=== PATIENT | male | born 1960 | race Caucasian/White ===

== ENCOUNTER 2016-05-02 10:52 | Emergency (ER) | payer OTHER ==
[~2016-05-02] VITALS: Ht 180.3 cm; Wt 129.3 kg
--- NOTE | 2016-05-02 10:57 | NUR ---
Patient ambulated to bed 06.
[2016-05-02 11:03] VITALS: BP 147/102
--- NOTE | 2016-05-02 11:07 | NUR ---
Dr. Kennedy evaluating patient at bedside.
--- NOTE | 2016-05-02 11:08 | NUR ---
PATIENT PRESENTS TO ED WITH C/O LOW BACK PAIN RADIATING DOWN RIGHT LEG AND LEFT KNEE PAIN X 3-4 DAYS. DENIES N/V/D; SKIN IS PINK/WARM/DRY; AAOX4 WITH EVEN AND STEADY GAIT; LUNGS CLEAR BL; HR EVEN AND REGULAR; PT DENIES ANY FEVER, CP, SOB, OR COUGH AT THIS TIME; PATIENT STATES PAIN OF 9/10 AT THIS TIME; VSS; PATIENT POSITIONED FOR COMFORT; HOB ELEVATED; BEDRAILS UP X2; BED DOWN. ER MD MADE AWARE OF PT STATUS.
--- NOTE | 2016-05-02 11:10 | NUR ---
DR. SCHMID AWARE OF RESULT OF URINE DIPSTICK
[2016-05-02] MEDS ORDERED: HYDROcodone/APAP 10/325 MG 1 TAB TAB PO ONE (11:20)
[2016-05-02] MEDS ORDERED: KETOROLAC 30 MG/ML VIAL IM ONE (11:20)
[2016-05-02] MEDS ORDERED: METHOCARBAMOL 500 MG TAB PO SCH (11:20)
--- NOTE | 2016-05-02 11:30 | NUR ---
Patient to XRAY via wheelchair per tech.
--- NOTE | 2016-05-02 11:53 | NUR ---
Patient back from XRAY via wheelchair per tech.
[2016-05-02 12:12] VITALS: BP 144/92
--- NOTE | 2016-05-02 12:12 | NUR ---
Patient discharged with v/s stable. Written and verbal after care instructions given and explained. Patient alert, oriented and verbalized understanding of instructions. Ambulatory with steady gait. All questions addressed prior to discharge. ID band removed. Patient advised to follow up with PMD. Rx of NORCO 5/325 MG, ROBAXIN 500MG, MOTRIN 600MG given. Patient educated on indication of medication including possible reaction and side effects. Opportunity to ask questions provided and answered.
== END 2016-05-02 12:12 | disposition home or self-care (01) ==
LOC: MED 10:52
DX: M54.16 Radiculopathy, lumbar region (principal); M25.562 Pain in left knee
CPT/HCPCS: 72110; 73562; 81002; 96372; 99284; J1885

== ENCOUNTER 2019-11-21 09:28 | Emergency (ER) | payer OTHER ==
[~2019-11-21] VITALS: Ht 180.3 cm; Wt 129.3 kg
[2019-11-21 09:30] VITALS: BP 131/78
--- NOTE | 2019-11-21 09:36 | NUR ---
Patient ambulated to bed 6. RN evaluating patient at bedside.
--- NOTE | 2019-11-21 09:42 | NUR ---
59 Y/O M C/C RLE CELLUTITIS X 1 DAY. PER PT HX OF PREVIOUS EPISODES DUE TO HEAVILY DRINKING ALCOHOL AND MOSQUITO BITES. PER PT HAS QUIT DRINKING DUE TO RECURRENT EVENTS OF CELLULITIS. PT PRESENTS WITH WARM TO TOUCH, PITTING EDEMA +1, SWOLLEN, ASYMMETRICAL SIZE RLE. PT NKA. HX CELLULITIS,DIVERTICULITIS. NO RX. NO NVD. DENIES PAIN. SIDE RAIL X1.
--- NOTE | 2019-11-21 09:56 | NUR ---
Dr. Sharp is evaluating the patient at bedside.
[2019-11-21] MEDS ORDERED: IBUPROFEN 800 MG TAB PO ONE (10:00)
--- NOTE | 2019-11-21 10:22 | NUR ---
US tech at bedside for exam.
[2019-11-21 11:10] VITALS: BP 128/76
--- NOTE | 2019-11-21 11:11 | NUR ---
Patient discharged with v/s stable. Written and verbal after care instructions given and explained. Patient alert, oriented and verbalized understanding of instructions. Ambulatory with steady gait. All questions addressed prior to discharge. ID band removed. Patient advised to follow up with PMD. Rx of MOTRIN,KEFLEX,BACTRIM given. Patient educated on indication of medication including possible reaction and side effects. Opportunity to ask questions provided and answered.
== END 2019-11-21 11:11 | disposition home or self-care (01) ==
LOC: MED 09:28
DX: L03.115 Cellulitis of right lower limb (principal); R03.0 Elevated blood-pressure reading, without diagnosis of hypertension; K57.92 Diverticulitis of intestine, part unspecified, without perforation or abscess without bleeding
CPT/HCPCS: 93971; 99284; Q0092

== ENCOUNTER 2019-12-22 14:30 | Emergency (ER) | payer OTHER ==
[~2019-12-22] VITALS: Ht 180.3 cm; Wt 126.8 kg
[2019-12-22 14:45] VITALS: BP 110/72
--- NOTE | 2019-12-22 14:56 | NUR ---
PATIENT AMBULATED TO BED 3.
[2019-12-22] MEDS ORDERED: NACL 0.9% 1,000 ML IV ONE (15:14)
[2019-12-22] MEDS ORDERED: CLINDAMYCIN 600 MG in DEXTROSE 5% 50 ML IV ONE (15:15)
--- NOTE | 2019-12-22 15:27 | NUR ---
59 yo male c/o right leg redness, swelling since last night. pt has hx of cellulitis. MED HX: CELLULITIS 11/21/19, DIVERTICULITIS
[2019-12-22 15:56] LABS: BASOPHILS % (AUTO) 0.3 % (0.0-2.0); EOSINOPHILS # (AUTO) 0.2 K/uL (0-0.4); EOSINOPHILS % (AUTO) 2.3 % (0.0-4.0); HEMATOCRIT 43.7 % (36-52); HEMOGLOBIN 15.4 g/dL (12.0-18.0); LYMPHOCYTES # (AUTO) 0.8 K/uL (2.0-11.5); LYMPHOCYTES % (AUTO) 12.7 % (20.5-51.1); MEAN CORPUSCULAR HEMOGLOBIN 33 pg (27-31); MEAN CORPUSCULAR HGB CONC 35 g/dL (33-37); MEAN CORPUSCULAR VOLUME 92.5 fL (80-94); MONOCYTES # (AUTO) 0.6 K/uL (0.8-1.0); NEUTROPHILS % (AUTO) 75.7 % (42.2-75.2); PLATELET COUNT (AUTO) 82 K/uL (140-450); RED BLOOD CELL COUNT(AUTO) 4.72 MIL/uL (4.20-6.10); WHITE BLOOD COUNT (AUTO) 6.7 K/uL (4.8-10.8)
[2019-12-22] MEDS ORDERED: CLINDAMYCIN 600 MG/4 ML VIAL ONE (16:03)
[2019-12-22 16:11] LABS: ALBUMIN 3.4 g/dL (3.4-5.0); ANION GAP 10.2 (8-16); CARBON DIOXIDE 27.7 mmol/L (21-32); CREATININE 0.7 mg/dL (0.6-1.3); POTASSIUM 3.9 mmol/L (3.5-5.1); TOTAL BILIRUBIN 2.6 mg/dL (0.0-1.0)
[2019-12-22 17:07] VITALS: BP 110/72
--- NOTE | 2019-12-22 17:07 | NUR ---
Patient discharged with v/s stable. Written and verbal after care instructions given and explained. Patient alert, oriented and verbalized understanding of instructions. Ambulatory with steady gait. All questions addressed prior to discharge. ID band removed. Patient advised to follow up with PMD. Rx of ACETAMINOPHEN, CLINDAMYACIN given. Patient educated on indication of medication including possible reaction and side effects. Opportunity to ask questions provided and answered.
== END 2019-12-22 17:07 | disposition home or self-care (01) ==
LOC: MED 14:30
DX: L03.115 Cellulitis of right lower limb (principal)
CPT/HCPCS: 36415; 80053; 83605; 85025; 87040; 93971; 96361; 96365; 99284; J3490; J7030; Q0092

== ENCOUNTER 2021-12-06 23:03 | Emergency (ER) | payer OTHER ==
[~2021-12-06] VITALS: Ht 180.3 cm; Wt 127.0 kg
[2021-12-06 23:20] VITALS: BP 132/81
--- NOTE | 2021-12-06 23:23 | NUR ---
TO LOBBY A/W BED AMBULATORY
--- NOTE | 2021-12-07 01:10 | NUR ---
PAIN, REDNESS, SWELLING, ON HIS RT LOWER LEG SINCE FRIDAY, WITH FEVER, H/A
--- NOTE | 2021-12-07 01:12 | NUR ---
PT AMBULATED TO ER BED 6, LAB AT BEDSIDE
--- NOTE | 2021-12-07 01:14 | NUR ---
LAB AT BEDSIDE
--- NOTE | 2021-12-07 01:19 | NUR ---
RADIOLOGY AT BEDSIDE
[2021-12-07 01:21] LABS: BASOPHILS % (AUTO) 0.8 % (0.0-2.0); EOSINOPHILS # (AUTO) 0.2 K/uL (0-0.4); EOSINOPHILS % (AUTO) 4.3 % (0.0-4.0); HEMATOCRIT 48.5 % (36-52); HEMOGLOBIN 17.1 g/dL (12.0-18.0); LYMPHOCYTES # (AUTO) 1.3 K/uL (2.0-11.5); LYMPHOCYTES % (AUTO) 23.9 % (20.5-51.1); MEAN CORPUSCULAR HEMOGLOBIN 33 pg (27-31); MEAN CORPUSCULAR HGB CONC 35 g/dL (33-37); MEAN CORPUSCULAR VOLUME 93.9 fL (80-94); MONOCYTES # (AUTO) 0.7 K/uL (0.8-1.0); NEUTROPHILS # (AUTO) 3.2 K/uL (1.8-7.7); PLATELET COUNT (AUTO) 93 K/uL (140-450); RED BLOOD CELL COUNT(AUTO) 5.16 MIL/uL (4.20-6.10); RED CELL DISTRIBUTION WIDTH 14.1 % (11.6-13.7); WHITE BLOOD COUNT (AUTO) 5.6 K/uL (4.8-10.8)
[2021-12-07 01:34] LABS: ALBUMIN 3.2 g/dL (3.4-5.0); ANION GAP 9.5 (8-16); CARBON DIOXIDE 28.7 mmol/L (21-32); CREATININE 0.7 mg/dL (0.6-1.3); POTASSIUM 4.2 mmol/L (3.5-5.1); TOTAL BILIRUBIN 2.4 mg/dL (0.0-1.0)
[2021-12-07] MEDS ORDERED: cephALEXin 500 MG CAP PO ONE (02:25)
[2021-12-07] MEDS ORDERED: SULF-59 PO (02:25)
[2021-12-07] MEDS ORDERED: SULFAMETH/TRIMETH DS 800/160MG 1 TAB PO ONE (02:25)
[2021-12-07] MEDS ORDERED: CEPH-588 PO (02:25)
[2021-12-07 02:55] VITALS: BP 128/79
--- NOTE | 2021-12-07 02:55 | NUR ---
Patient discharged with v/s stable. Written and verbal after care instructions given and explained. Patient alert, oriented and verbalized understanding of instructions. Ambulatory with steady gait. All questions addressed prior to discharge. ID band removed. Patient advised to follow up with PMD. Rx of KEFLEX AND BACTRIM given. Patient educated on indication of medication including possible reaction and side effects. Opportunity to ask questions provided and answered.
== END 2021-12-07 02:55 | disposition home or self-care (01) ==
LOC: MED 23:03
DX: L03.115 Cellulitis of right lower limb (principal); D69.6 Thrombocytopenia, unspecified; I10 Essential (primary) hypertension; Z79.899 Other long term (current) drug therapy
CPT/HCPCS: 36415; 73590; 80053; 83605; 85025; 87040; 99284; Q0092